=== PATIENT | female | born 1995 | race Hispanic/Latino ===

== ENCOUNTER 2024-03-10 06:58 | Emergency (ER) | payer SELFPAY ==
[2024-03-10] MEDS ORDERED: Lorazepam 2 MG/ML VIAL ONE (07:55)
[2024-03-10 08:26] LABS: #Basophils Less than 0.03 10x3/uL (0.0-0.2); #Eosinophils Less than 0.03 10x3/uL (0.0-0.5); #Monocytes 0.45 10x3/uL (0.0-1.1); #Neutrophils 6.73 10x3/uL (1.5-8.4); %Basophils 0.2 % (0.0-2.0); %Eosinophils 0.2 % (0.0-6.0); %Lymphocytes 15.9 % (18.0-47.0); %Monocytes 5.2 % (0.0-10.0); %Neutrophils 77.9 % (40.0-75.0); Hematocrit 40.1 % (34.9-44.5); Hemoglobin 13.7 g/dL (12.0-15.5); Mean Corpuscular HGB CONC 34.2 g/dL (32.0-36.0); Mean Corpuscular Hemoglobin 31.3 pg (27.0-33.0); Mean Corpuscular Volume 91.6 fL (81.6-98.3); Mean Platelet Volume 10.1 fL (7.4-10.4); Platelet Count 307 10x3/uL (150-450); RBC Distribution Width 13.2 % (11.5-14.5); Red Blood Cell (RBC) Count 4.38 10x6/uL (3.90-5.03); White Blood Cell (WBC) Count 8.64 10x3/uL (3.5-10.5)
[2024-03-10 08:31] LABS: BHCG - Serum Negative (NEGATIVE); Pregs Control Background? CLEAR/WHITE (CLR/WHITE); Pregs Control Bar Appear? YES (CONTROL BAR)
[2024-03-10 08:38] LABS: ALT (SGPT) 12 U/L (Less than 34); AST (SGOT) 28 U/L (11-34); Albumin 4.3 g/dL (3.1-4.5); Alkaline Phosphatase 66 U/L (40-110); Anion Gap 13 mmol/L (10-20); BUN (Urea Nitrogen) 9 mg/dL (7.0-18.7); Bilirubin, Total 0.3 mg/dL (0.3-1.2); Calc. Creatinine Clearance 0 mL/min (70-130); Calcium 9.5 mg/dL (7.8-10.44); Carbon Dioxide 24 mmol/L (22-29); Chloride 107 mmol/L (98-107); Estimated GFR 120; Globulin 4.1 g/dL (2.4-3.5); Glucose 104 mg/dL (70-105); Lipase 18 U/L (8-78); Magnesium 2.3 mg/dL (1.6-2.6); Potassium 3.8 mmol/L (3.5-5.1); Protein, Total 8.4 g/dL (6.0-8.3); Sodium 140 mmol/L (136-145)
[2024-03-10 08:41] LABS: Troponin I Less than 0.010 ng/mL (< 0.028)
== END 2024-03-10 09:56 | disposition home or self-care (01) ==
LOC: CSHERS 06:58
DX: F41.9 Anxiety disorder, unspecified (principal)
CPT/HCPCS: 36415; 80053; 83690; 83735; 84484; 84703; 85025; 96374; J2060

== ENCOUNTER 2024-04-14 16:41 | Emergency (ER) | payer SELFPAY ==
[2024-04-14] MEDS ORDERED: hydrOXYzine 25 MG TAB ONE (17:13)
== END 2024-04-14 17:30 | disposition home or self-care (01) ==
LOC: CSHERS 16:41
DX: F41.9 Anxiety disorder, unspecified (principal)
CPT/HCPCS: 99283

== ENCOUNTER 2025-01-23 23:48 | Emergency (ER) | payer OTHER | END 2025-01-24 02:24 | disposition home or self-care (01) | LOC: CSHERS 23:48 | DX: F41.9 Anxiety disorder, unspecified (principal) ==